=== PATIENT | female | born 1965 | race African-American/Black ===

== ENCOUNTER 2022-02-16 16:38 | Emergency (ER) | payer BC ==
--- OUTSIDE RECORDS SUMMARY | 2022-02-16 16:42 | XMS REPORT | Continuity of Care Document ---
:1965 Author Organization [facility] t Address [address] [place] [address] Care Team Providers Name Role Phone KALLIE TORRE Attending Clinician Unavailable PUMA NICOLAS Attending Clinician Unavailable Payers Payer Name Policy Type Policy Number Effective Date Expiration Date S jessica BCBS 2 [id number] 2019 00:00:00 Problems This patient has no known problems. Allergies, Adverse Reactions, Alerts Allergy Allergy Status Severity Reaction(s) Onset Inactive Treating Comm ents Source Name Type Date Date Clinician NO KNOWN Allergy Active [facility] Social History Social Habit Start Date Stop Date Quantity Comments Source Sex Assigned At [birth year] [facility] ([facility] Iris maldonados 00:00:00 00:00:00 [facility] Center Medications This patient has no known medications. Vital Signs Vital Name Observation Time Observation Value Comments Source WEIGHT 2020-01-29 00:00:00 93.895 kg HEIGHT 2020-01-29 00:00:00 162.6 cm WEIGHT 2020-01-29 00:00:00 93.895 kg HEIGHT 2020-01-29 00:00:00 162.6 cm Procedures This patient has no known procedures. Plan of Care Planned Activity Planned Date Details Comments Source Future Scheduled 2022-01-27 INFLUENZA VACCINE (#1) [facility] 00:00:00 [code = INFLUENZA Medical Ce nter VACCINE (#1)] Future Scheduled 2021-05-[address] [facility] 00:00:00 (12+) [code = Medical Center DEPRESSION SCREENING (12+)] Future Scheduled 2021-01-27 INFLUENZA VACCINE (#1) [facility] 00:00:00 [code = INFLUENZA Medical Ce nter VACCINE (#1)] Future Scheduled 2020-05-[address] [facility] 00:00:00 (12+) [code = Medical Center DEPRESSION SCREENING (12+)] Future Scheduled 2017-09-30 SHINGLES VACCINES ([address] [facility] 00:00:00 2) [code = SHINGLES Medical Center VACCINES (1 of 2)] Future Scheduled 2017-09-30 SHINGLES VACCINES ([address] [facility] 00:00:00 2) [code = SHINGLES Medical Center VACCINES (1 of 2)] Future Scheduled 2012-09-30 Lipid panel (procedure) [facility] 00:00:00 [code = 79730832] Medical Ce nter Future Scheduled 2012-09-30 Lipid panel (procedure) [facility] 00:00:00 [code = 90854734] Medical Ce nter Future Scheduled 1988-09-30 Screening for malignant [facility] 00:00:00 neoplasm of cervix Medical C enter (procedure) [code = 994876397] Future Scheduled 1988-09-30 Screening for malignant [facility] 00:00:00 neoplasm of cervix Medical C enter (procedure) [code = 861118568] Future Scheduled 1986-09-30 DTAP/TDAP/TD VACCINES [facility] 00:00:00 (1 - Tdap) [code = Medical C enter DTAP/TDAP/TD VACCINES (1 - Tdap)] Future Scheduled 1986-09-30 DTAP/TDAP/TD VACCINES [facility] 00:00:00 (1 - Tdap) [code = Medical C enter DTAP/TDAP/TD VACCINES (1 - Tdap)] Future Scheduled 1985-09-30 HEPATITIS C SCREENING [facility] 00:00:00 [code = HEPATITIS C Medical Center SCREENING] Future Scheduled 1985-09-30 HEPATITIS C [facility]ING [facility] 00:00:00 [code = HEPATITIS C Medical Center SCREENING] Future Scheduled 1979 COVID-19 VACCINE (1) [facility] 00:00:00 [code = COVID-[address] VACCINE (1)] Future Scheduled 1968-04-02 COVID-19 VACCINE (#1) [facility] 00:00:00 [code = COVID-[address] VACCINE (#1)] Future Scheduled 1967 Screening for malignant [facility] 00:00:00 neoplasm of breast Medical C enter (procedure) [code = 436338537] Future Scheduled 1967 Screening for malignant [facility] 00:00:00 neoplasm of colon Medical Ce nter (procedure) [code = 140610190] Future Scheduled 1967 Screening for malignant [facility] 00:00:00 neoplasm of breast Medical C enter (procedure) [code = 639597404] Future Scheduled 1967 CT Colonography (combo) [facility] 00:00:00 [code = CT Colonography [facility] (combo)] Future Scheduled 1967 Screening for malignant [facility] 00:00:00 neoplasm of colon Medical Ce nter (procedure) [code = 769635801] Future Scheduled 1967 Screening for malignant [facility] 00:00:00 neoplasm of colon Medical Ce nter (procedure) [code = 492110371] Future Scheduled 1967 Screening for malignant [facility] 00:00:00 neoplasm of colon Medical Ce nter (procedure) [code = 433346057] Future Scheduled 1967 Screening for malignant [facility] 00:00:00 neoplasm of colon Medical Ce nter (procedure) [code = 743905085] Future Scheduled 1965 Sigmoidoscopy [code = [facility] S[facility]oscopy] Medical Cente r Encounters Start End Encounter Admission Attending Care Care Encounter Source Date/Time Date/Time Type Type Clinicians Facility Department ID 2021-06-22 2021-06-22 Outpatient [facility] 00:00:00 00:00:00 [id number] 2021-06-02 2021-06-02 Outpatient SHAMAR TORRE [id number] Shamar 16:00:00 16:00:00 KALLIE moya 2020-01-29 2020-01-29 Emergency ER [facility] Emergency [id number] 07:20:00 07:20:00 Results Test Description Test Time Test Comments Results Result Comments Source URINALYSIS W/ MICROSCOPIC 2020-01-29 09:14:00 Test Item Value Reference Range Interpretation Comme nts COLOR (BEAKER) (test code = 470) Yellow CLARITY (BEAKER) (test code = 469) Clear SPECIFIC GRAVITY UA (BEAKER) (test code = 468) >= 1.001-1 .035 PH UA (BEAKER) (test code = 467) 5.5 5.0-8.0 PROTEIN UA (BEAKER) (test code = 464) Negative Negative GLUCOSE UA (BEAKER) (test code = 365) Negative Negative KETONES UA (BEAKER) (test code = 371) Negative Negative BILIRUBIN UA (BEAKER) (test code = 462) Negative Negative BLOOD UA (BEAKER) (test code = 461) Negative Negative NITRITE UA (BEAKER) (test code = 465) Negative Negative LEUKOCYTE ESTERASE UA (BEAKER) (test code = 466) Negative Negat michael UROBILINOGEN UA (BEAKER) (test code = 463) 0.2 mg/dL 0.2-1.0 BACTERIA (BEAKER) (test code = 517) None Seen RBC UA-MANUAL (BEAKER) (test code = 1659) None Seen /HPF WBC UA-MANUAL (BEAKER) (test code = 1661) None Seen /HPF SQUAMOUS EPITHELIAL MANUAL (BEAKER) (test code = 1663) <5 /HPF SOURCE(BEAKER) (test code = 2795) TROPONIN [id number] 08:56:00 Test Item Value Reference Range Interpretation Comments TROPONIN I (BEAKER) (test code = 0.01 ng/mL 0.00-0.03 397) Troponin I (TnI) levels must be interpreted in the context of the presenting symptoms and the clinical findings. Elevated TnI levels indicate myocardial damage, but are not specific for ischemic heart disease. Elevated TnI levels are seen in patients with other cardiac conditions (including myocarditis and congestive heart failure), and slight TnI elevations occur in patients with other conditions, including sepsis, renal failure, acidosis, acute neurological disease, and persistent tachyarrhythmia.Department Manager ID - BRUCEBASIC METABOLIC PANEL 2020-01-29 08:52:00 Test Item Value Reference Range Interpretation Comments SODIUM (BEAKER) 141 meq/L 135-148 (test code = 381) POTASSIUM (BEAKER) 4.1 meq/L 3.6-5.5 (test code = 379) CHLORIDE (BEAKER) 105 meq/L 98-106 (test code = 382) CO2 (BEAKER) (test 28 meq/L 20-29 code = 355) BLOOD UREA NITROGEN 15 mg/dL 10-26 (BEAKER) (test code = 354) CREATININE (BEAKER) 0.80 mg/dL 0.50-1.20 (test code = 358) GLUCOSE RANDOM 96 mg/dL 70-110 (BEAKER) (test code = 652) CALCIUM (BEAKER) 9.6 mg/dL 8.5-10.5 (test code = 697) EGFR (BEAKER) (test 91 mL/min/1.73 ESTIMA DEBBIE GFR IS code = 1092) sq m NOT ACCURATE CREATININE CLEARANCE IN PREDICTING GLOMERULAR FILTRATION RATE . ESTIMATED GFR I S NOT APPLICABLE FOR DIALYSIS PATIEN TS. Department Manager ID - BRUCECBC W/PLT COUNT & AUTO [id number] 08:35:00 Test Item Value Reference Range Interpretation Comments WHITE BLOOD CELL COUNT (BEAKER) 9.9 K/ L 4.0-10.0 (test code = 775) RED BLOOD CELL COUNT (BEAKER) 5.43 M/ L 4.00-5.00 H (test code = 761) HEMOGLOBIN (BEAKER) (test code = 15.0 GM/DL 12.0-15.5 410) HEMATOCRIT (BEAKER) (test code = 46.0 % 36.0-46.0 411) MEAN CORPUSCULAR VOLUME (BEAKER) 84.7 fL 82.0-99.0 (test code = 753) MEAN CORPUSCULAR HEMOGLOBIN 27.6 pg 27.0-33.0 (BEAKER) (test code = 751) MEAN CORPUSCULAR HEMOGLOBIN CONC 32.6 GM/DL 32.0-36.0 (BEAKER) (test code = 752) RED CELL DISTRIBUTION WIDTH 13.9 % 12.0-15.0 (BEAKER) (test code = 412) PLATELET COUNT (BEAKER) (test 361 K/CU MM 150-430 code = 756) MEAN PLATELET VOLUME (BEAKER) 10.3 fL 6.0-11.5 (test code = 754) NUCLEATED RED BLOOD CELLS 0 /100 WBC 0-0 (BEAKER) (test code = 413) NEUTROPHILS RELATIVE PERCENT 64 % (BEAKER) (test code = 429) LYMPHOCYTES RELATIVE PERCENT 25 % (BEAKER) (test code = 430) MONOCYTES RELATIVE PERCENT 6 % (BEAKER) (test code = 431) EOSINOPHILS RELATIVE PERCENT 4 % (BEAKER) (test code = 432) BASOPHILS RELATIVE PERCENT 1 % (BEAKER) (test code = 437) NEUTROPHILS ABSOLUTE COUNT 6.34 K/ L 1.80-8.00 (BEAKER) (test code = 670) LYMPHOCYTES ABSOLUTE COUNT 2.50 K/ L 1.48-4.50 (BEAKER) (test code = 414) MONOCYTES ABSOLUTE COUNT (BEAKER) 0.57 K/ L 0.00-1.30 (test code = 415) EOSINOPHILS ABSOLUTE COUNT 0.35 K/ L 0.00-0.50 (BEAKER) (test code = 416) BASOPHILS ABSOLUTE COUNT (BEAKER) 0.13 K/ L 0.00-0.20 (test code = 417) IMMATURE GRANULOCYTES-RELATIVE 0 % 0-0 PERCENT (BEAKER) (test code = 2801) RAD, CHEST, 2 [id number] 08:16:00Reason for exam:->chest painIs the patient ?->NoShould this be performed at the bedside?->NoFINAL REPORT History provided: Chest pain CHEST PA AND LATERAL: Normal cardiomediastinal silhouette. Lungs are fully expanded and clear. CONCLUSION: Normal two-view chest examination. Signed: Kirk Beckett MDReport Verified Date/Time: 01/29/2020 08:16:31 Reading Location: [facility] Diagnostic Imaging Reading Room - [facility] 1.310.12 08:16 AMCT, BRAIN, WITHOUT [id number] 08:16:00Reason for exam:->headacheFINAL REPORT CT, BRAIN, WITHOUT CONTRAST CLINICAL INDICATION: Headache, intracranial hemorrhage suspectedheadache COMPARISON: None TECHNIQUE: Noncontrast axial CT imaging of the brain and skull. DOSE REDUCTION: Dose modulation, iterative reconstruction, and/or weight-based adjustment of the mA/kV was utilized to reduce the radiation dose to as low as reasonably achievable. FINDINGS:No intracranial hemorrhage, midline shift or mass effect. Midline structures are normally developed. No hydrocephalus. Orbits are within normal limits. No obstructive paranasal sinus disease. IMPRESSION: No acute intracranial findings If there is persistent clinical concern for intracranial pathology, MR examination is recommended for further characterization. Signed: María Giordano MDReport Verified Date/Time: 01/29/2020 08:16:30 Reading Location: [facility] B1 C013V Neuro Reading Room
[2022-02-16] MEDS ORDERED: HYDROCODONE/APAP 7.5/325 MG TAB ONE (18:35)
[2022-02-16] MEDS ORDERED: ONDANSETRON 4 MG (ODT) TAB ONE (18:35)
--- NOTE | 2022-02-16 18:53 | RAD REPORT ---
EXAM DESCRIPTION: CT - [id number] - 02/16/2022 6:44 pm CLINICAL HISTORY: Trauma, head and neck injury. headache COMPARISON: No comparisons TECHNIQUE: Axial 5 mm thick images of the head were obtained. Axial 2 mm thick images of the cervical spine were obtained with sagittal and coronal reconstruction images generated and reviewed. All CT scans are performed using dose optimization technique as appropriate and may include automated exposure control or mA/KV adjustment according to patient size. FINDINGS: CT HEAD WITHOUT CONTRAST: No acute hemorrhage, hydrocephalus or extra-axial collection is identified.No areas of brain edema or midline shift. The paranasal sinuses and mastoids are clear.The calvarium is intact. CT CERVICAL SPINE WITHOUT CONTRAST: No fracture or subluxation.No prevertebral soft tissues swelling is identified. IMPRESSION: No acute intracranial or cervical spine findings.
--- NOTE | 2022-02-16 20:04 | ER ---
Nurse's Notes [facility] Name: Peri Zavala Age: 56 yrs Sex: Female : 1965 Arrival Date: 02/16/2022 Time: 16:42 Bed 9 Private MD: Diagnosis: Contusion of unspecified part of head, initial encounter;Concussion without loss of consciousness Presentation: 02/16 17:26 Chief complaint: Patient states: pt hit head on freezer door x 3 days ago. - loc but 6 states that she has he and neck tenderness. (my hair hurt). Coronavirus screen: Vaccine status:. Ebola Screen: Patient negative for fever greater than or equal to 101.5 degrees Fahrenheit, and additional compatible Ebola Virus Disease symptoms Patient denies exposure to infectious person. Patient denies travel to an Ebola-affected area in the 21 days before illness onset. Mechanism of Injury: The problem was sustained at home, resulted from a direct blow. Initial Sepsis Screen: Does the patient meet any 2 criteria? No. Patient's initial sepsis screen is negative. Does the patient have a suspected source of infection? No. Patient's initial sepsis screen is negative. Risk Assessment: Do you want to hurt yourself or someone else? Patient reports no desire to harm self or others. 17:26 Method Of Arrival: Ambulatory [facility] 17:26 Acuity: LUNA 3 6 Triage Assessment: 17:30 General: Appears in no apparent distress. Behavior is calm, cooperative. Pain: 6 Complains of pain in right frontal area. Historical: - Allergies: 17:29 No Known Allergies; [facility] - PMHx: 17:29 None; [facility] - PSHx: 17:29 None; [facility] - Immunization history:: Adult Immunizations up to date. - Social history:: Smoking status: Patient denies any tobacco usage or history of. Screenin:56 Abuse screen: Denies threats or abuse. Nutritional screening: No deficits noted. bm7 Tuberculosis screening: No symptoms or risk factors identified. Fall Risk None identified. Assessment: 19:56 Reassessment: No changes from previously documented assessment. Patient and/or family bm7 updated on plan of care and expected duration. Pain level reassessed. Patient is alert, oriented x 3, equal unlabored respirations, skin warm/dry/pink. Vital Signs: 17:26 BP 177 / 85; Pulse 68; Resp 17; Temp 97.7; Pulse Ox 99% ; Weight 92.99 kg; Height 5 ft. jh6 5 in. (165.10 cm); Pain 7/10; 19:57 BP 158 / 80; Pulse 82; Resp 16; Pulse Ox 100% on R/A; bm7 17:26 Body Mass Index 34.11 (92.99 kg, 165.10 cm) jh6 Marc Coma Score: 17:26 Eye Response: spontaneous(4). Verbal Response: oriented(5). Motor Response: obeys jh6 commands(6). Total: 15. 18:30 Eye Response: spontaneous(4). Verbal Response: oriented(5). Motor Response: obeys commands(6). Total: 15. ED Course: 16:42 Patient arrived in ED. mr 16:58 Conrad Almodovar PA is PHCP. jm 16:58 Hernandez Caban MD is Attending Physician. [facility] 17:29 Triage completed. jh6 17:30 Arm band placed on left wrist. jh6 18:07 Hernandez Shahid PA is PHCP. cp 18:07 Hernandez Caban MD is Attending Physician. cp 18:44 Patient moved to radiology. ss 19:56 Patient has correct armband on for positive identification. Call light in reach. Client bm7 placed on continuous cardiac and pulse oximetry monitoring. NIBP monitoring applied. 19:56 No provider procedures requiring assistance completed. bm7 20:02 Dudley Berman MD is Referral Physician. cp 21:27 Patient did not have IV access during this emergency room visit. eh3 Administered Medications: 18:27 Drug: Zofran (Ondansetron) 4 mg Route: PO; bm7 18:27 Drug: Hydrocodone-Acetaminophen (7.5 mg-325 mg) 1 tabs Route: PO; bm7 Outcome: 20:03 Discharge ordered by . cp 21:26 Discharged to home ambulatory. eh3 21:26 Condition: stable 21:26 Discharge instructions given to patient, Instructed on discharge instructions, follow up and referral plans. medication usage, Demonstrated understanding of instructions, follow-up care, medications, Prescriptions given X 3. 21:27 Patient left the ED. 3 Signatures: Mickail, ConradCHERIE mcnealNieves mr ArshAmberly espinoza RN RN ss Hernandez Shahid PA PA cp McCarthy, Brittany, STACY RN bm7 Lina Ching RN RN jh6 Gayla Alvares RN RN eh3 Corrections: (The following items were deleted from the chart) 17:31 17:26 BP 169 / 100; Pulse 70bpm; Resp 17bpm; Pulse Ox 99%; Temp 97.7F; 92.99 kg; Height jh6 5 ft. 5 in.; BMI: 34.1; Pain 7/10; jh6
--- NOTE | 2022-02-16 20:04 | EDPHYS ---
Physician Documentation [facility] Name: Peri Zavala Age: 56 yrs Sex: Female : 1965 Arrival Date: 02/16/2022 Time: 16:42 Bed 9 Private MD: ED Physician Hernandez Caban HPI: 02/16 18:30 This 56 yrs old Black Female presents to ER via Ambulatory with complaints of Head cp Injury-Adult, Vision Problem, Ear Ringing. 18:30 The patient or guardian reports injury, pain. The complaints affect the top of head. cp The complaints affect the top of head, left side of the back of head, left occipital area, left base of the skull, right occipital area and right base of the skull. 18:30 Associated signs and symptoms: Loss of consciousness: This patient did not experience cp any loss of consciousness. Pertinent positives: headache, nausea, neck pain, blurry vision. Historical: - Allergies: 17:29 No Known Allergies; [facility] - PMHx: 17:29 None; [facility] - PSHx: 17:29 None; [facility] - Immunization history:: Adult Immunizations up to date. - Social history:: Smoking status: Patient denies any tobacco usage or history of. ROS: 18:35 Constitutional: Negative for body aches, chills, fever, poor PO intake. cp 18:35 Eyes: Positive for blurry vision, Negative for pain, redness, vision loss. cp 18:35 ENT: Negative for drainage from ear(s), ear pain, sore throat, difficulty swallowing, difficulty handling secretions. 18:35 Neck: Positive for tenderness. 18:35 Cardiovascular: Negative for chest pain, edema, palpitations. 18:35 Respiratory: Negative for cough, shortness of breath, wheezing. 18:35 Abdomen/GI: Positive for nausea, Negative for abdominal pain, vomiting, diarrhea, constipation. 18:35 Neuro: Positive for headache, Negative for altered mental status, loss of consciousness, weakness. 18:35 All other systems are negative. Exam: 18:40 Constitutional: The patient appears in no acute distress, alert, awake, non-toxic, well cp developed, well nourished. 18:40 Head/Face: Normocephalic, atraumatic. cp 18:40 Eyes: Periorbital structures: appear normal, Pupils: equal, round, and reactive to light and accomodation, Extraocular movements: intact throughout, Conjunctiva: normal, no exudate, no injection, Lids and lashes: appear normal, bilaterally. 18:40 ENT: External ear(s): are unremarkable, Ear canal(s): are normal, clear, TM's: dullness, bilaterally, Nose: is normal, Mouth: Lips: moist, Oral mucosa: moist, Posterior pharynx: Airway: no evidence of obstruction, patent. 18:40 Neck: External neck: tenderness, that is mild, of the occiput, C-spine: vertebral tenderness, is not appreciated, crepitus, is not appreciated, ROM/movement: pain, that is mild, with any movement, limited range of motion, is not appreciated, nuchal rigidity, is not appreciated. 18:40 Chest/axilla: Inspection: normal. 18:40 Cardiovascular: Rate: normal, Rhythm: regular. 18:40 Respiratory: the patient does not display signs of respiratory distress, Respirations: normal, no use of accessory muscles, no retractions. 18:40 Abdomen/GI: Exam negative for discomfort, distension, guarding, Inspection: abdomen appears normal. 18:40 Back: pain, is absent, ROM is normal. 18:40 Neuro: Orientation: to person, place \T\ time. Mentation: is normal, Cerebellar function: is grossly normal, Motor: moves all fours, strength is normal, Sensation: is normal, Gait: is steady, at a normal pace, without difficulty. Vital Signs: 17:26 BP 177 / 85; Pulse 68; Resp 17; Temp 97.7; Pulse Ox 99% ; Weight 92.99 kg; Height 5 ft. jh6 5 in. (165.10 cm); Pain 7/10; 19:57 BP 158 / 80; Pulse 82; Resp 16; Pulse Ox 100% on R/A; bm7 17:26 Body Mass Index 34.11 (92.99 kg, 165.10 cm) jh6 [place] Coma Score: 17:26 Eye Response: spontaneous(4). Verbal Response: oriented(5). Motor Response: obeys jh6 commands(6). Total: 15. 18:30 Eye Response: spontaneous(4). Verbal Response: oriented(5). Motor Response: obeys commands(6). Total: 15. MDM: 18:10 Patient medically screened. cp 19:00 Differential diagnosis: Contusion of Hematoma on Intracranial bleed- Concussion cp cerebral contusion. 20:02 Data reviewed: vital signs, nurses notes, radiologic studies, CT scan. cp 20:02 Counseling: I had a detailed discussion with the patient and/or guardian regarding: the cp historical points, exam findings, and any diagnostic results supporting the discharge/admit diagnosis, radiology results, the need for outpatient follow up, a neurologist, to return to the emergency department if symptoms worsen or persist or if there are any questions or concerns that arise at home. Response to treatment: the patient's symptoms have markedly improved after treatment, and as a result, I will discharge patient. Special discussion: Based on the patient's history, exam and DX evaluation, there is no indication for emergent intervention or inpatient [place]. It is understood by the patient/guardian that if the SXs persist or worsen they need to return immediately for re-evaluation. 02/16 18:20 Order name: CT Head C Spine: headache, hit head on refrigerator door cp 02/16 18:54 Order name: CT; Complete Time: 19:55 EDMS 02/16 19:59 Interpretation: Report reviewed. cp Administered Medications: 18:27 Drug: Zofran (Ondansetron) 4 mg Route: PO; bm7 18:27 Drug: Hydrocodone-Acetaminophen (7.5 mg-325 mg) 1 tabs Route: PO; bm7 Disposition Summary: 02/16/22 20:03 Discharge Ordered Location: Home cp Problem: new cp Symptoms: have improved cp Condition: Stable cp Diagnosis - Contusion of unspecified part of head, initial encounter cp - Concussion without loss of consciousness cp Followup: cp - With: Dudley Berman MD - When: 2 - 3 days - Reason: Recheck today's complaints Discharge Instructions: - Discharge Summary Sheet cp - Concussion, Adult cp - Facial or Scalp Contusion cp - Head Injury, Adult cp - Form - Return To Work eh3 Forms: - Medication Reconciliation Form cp - Thank You Letter cp - Antibiotic Education cp - Prescription Opioid Use cp Prescriptions: - Zofran 4 mg Oral Tablet - take 1 tablet by ORAL route every 12 hours As needed; 20 tablet; Refills: 0, cp Product Selection Permitted - Cyclobenzaprine 10 mg Oral Tablet - take 1 tablet by ORAL route every 8 hours As needed; 20 tablet; Refills: 0, cp Product Selection Permitted - Diclofenac Sodium 75 mg Oral tablet,delayed release (DR/EC) - take 1 tablet by ORAL route 2 times per day; 20 tablet; Refills: 0, Product cp Selection Permitted Signatures: Dispatcher [employer] Hernandez Romero PA PA cp McCarthy, Brittany, RN RN bm7 Lina Ching RN RN jh6
== END 2022-02-16 21:27 | disposition home or self-care (01) ==
LOC: ER 16:38
DX: S00.83XA Contusion of other part of head, initial encounter (principal); S06.0X0A Concussion without loss of consciousness, initial encounter
CPT/HCPCS: 70450; 72125; Q0162